=== PATIENT | female | born 1975 | race Caucasian/White ===

== ENCOUNTER 2017-05-29 12:37 | Emergency (ER) | payer BC ==
[~2017-05-29] VITALS: Ht 162.6 cm; Wt 56.7 kg
[~2017-05-29 12:37] MED LIST: ANT25HP PO; MINO50TA PO; SPIR50TA2 PO
[2017-05-29 12:57] VITALS: TEMP 36.6; Ht 162.6 cm; Wt 56.7 kg
[2017-05-29 13:02] VITALS: O2SAT 100
[2017-05-29] MEDS ORDERED: SODIUM CHLORIDE 0.9% 1000ML 1,000 ML IV STA (13:05)
[2017-05-29] MEDS ORDERED: ACETAMINOPHEN 325 MG TAB PO STA (13:05)
--- NOTE | 2017-05-29 13:09 | EMERGENCY ROOM VISIT NOTE ---
History Report prepared by Pearl: Jennie Dickerson Under the Supervision of: Dr. Stefan Ventura M.D. First contact with patient: 12:57 Chief Complaint: SYNCOPE (NEAR SYNCOPE) Stated Complaint: NEAR SYNCOPE IN OUT PATIENT XRAY History of Present Illness The patient is a 42 year old female who presents to the Emergency Room with complaints of a near syncope episode that occurred 2 hours ago. The patient notes that she felt nauseous and had some episodes of diarrhea last night. She states that she ate this morning. The patient notes her that her heart was racing during the episode today, but she denies loss of consciousness, chest pain, or shortness of breath. She notes that she currently has a headache. The patient has a history of feeling dizzy and having near syncope episodes. Source of History: patient Onset: two hours ago Quality: other (near syncope) Timing: other (episode) Associated Symptoms: + headache, + nausea, + diarrhea, No LOC, No chest pain , No SOB Review of Systems See HPI for pertinent positives & negatives. A total of 10 systems reviewed and were otherwise negative. Past Medical & Surgical Medical Problems: (1) Acne (2) Minocycline correction use Family History FH: heart disease FH: hyperlipidemia Hypertension Social History Smoking Status: Never Smoker Alcohol Use: occasionally Drug Use: none Marital Status: Occupation Status: employed Current/Historical Medications Scheduled Minocycline Hcl (Minocycline Hcl), 50 MG PO BID Spironolactone (Aldactone), 50 MG PO BID Allergies Coded Allergies: Azithromycin (Unverified Allergy, Mild, 05/29/17) Physical Exam Vital Signs Date Time Temp Pulse Resp B/P (MAP) Pulse Ox O2 Delivery O2 Flow Rate FiO2 05/29/17 16:54 67 20 112/77 99 05/29/17 15:58 68 20 106/70 97 Room Air 05/29/17 13:27 71 131/78 87 132/95 79 141/90 05/29/17 13:21 72 05/29/17 13:02 100 Room Air 05/29/17 12:57 36.6 72 18 132/87 100 Room Air Physical Exam GENERAL: Patient is in no acute distress. HEENT: No acute trauma, normocephalic atraumatic, mucous membranes moist, no nasal congestion, no scleral icterus. NECK: No stridor, no adenopathy, no meningismus, trachea is midline. LUNGS: Clear to auscultation bilaterally, no wheeze, no rhonchi, breath sounds equal. HEART: Without murmurs gallops or rubs, regular rate and rhythm. ABDOMEN: Soft, nontender, bowel sounds positive, no hernias, no peritonitis. EXTREMITIES: No cyanosis or edema, full range of motion of all the joints without pain or difficulty, no signs for acute trauma. NEUROLOGIC: Oriented x 3, no acute motor or sensory deficits, no focal weakness. SKIN: No rash, no jaundice, no diaphoresis. Medical Decision & Procedures ER Provider Diagnostic Interpretation: Radiology results as stated below per my review and radiologist interpretation: CHEST ONE VIEW PORTABLE FINDINGS: Cardiac silhouette is within normal limits. There is no pneumothorax, pleural effusion or focal airspace consolidation. Convex right curvature of the midthoracic spine is seen measuring approximate 16 degrees. Bones appear to be grossly intact. IMPRESSION: No acute cardiopulmonary process. The above report was generated using voice recognition software. It may contain grammatical, syntax or spelling errors. Electronically signed by: Marck Allen M.D. Laboratory Results 05/29/17 13:40 Red Blood Count 4.75, Mean Corpuscular Volume 94.7, Mean Corpuscular Hemoglobin 33.1, Mean Corpuscular Hemoglobin Concent 34.9, Mean Platelet Volume 12.9, Neutrophils (%) (Auto) 81.8, Lymphocytes (%) (Auto) 12.9, Monocytes (%) (Auto) 3.7, Eosinophils (%) (Auto) 1.1, Basophils (%) (Auto) 0.1, Neutrophils # (Auto) 9.30, Lymphocytes # (Auto) 1.47, Monocytes # (Auto) 0.42, Eosinophils # (Auto) 0.13, Basophils # (Auto) 0.01 05/29/17 13:40 Test 05/29/17 13:40 05/29/17 16:06 White Blood Count 11.37 K/uL (4.8-10.8) Red Blood Count 4.75 M/uL (4.2-5.4) Hemoglobin 15.7 g/dL (12.0-16.0) Hematocrit 45.0 % (37-47) Mean Corpuscular Volume 94.7 fL (80-100) Mean Corpuscular Hemoglobin 33.1 pg (25-34) Mean Corpuscular Hemoglobin Concent 34.9 g/dl (32-36) Platelet Count 166 K/uL (130-400) Mean Platelet Volume 12.9 fL (7.4-10.4) Neutrophils (%) (Auto) 81.8 % Lymphocytes (%) (Auto) 12.9 % Monocytes (%) (Auto) 3.7 % Eosinophils (%) (Auto) 1.1 % Basophils (%) (Auto) 0.1 % Neutrophils # (Auto) 9.30 K/uL (1.4-6.5) Lymphocytes # (Auto) 1.47 K/uL (1.2-3.4) Monocytes # (Auto) 0.42 K/uL (0.11-0.59) Eosinophils # (Auto) 0.13 K/uL (0-0.5) Basophils # (Auto) 0.01 K/uL (0-0.2) RDW Standard Deviation 42.2 fL (36.4-46.3) RDW Coefficient of Variation 12.3 % (11.5-14.5) Immature Granulocyte % (Auto) 0.4 % Immature Granulocyte # (Auto) 0.04 K/uL (0.00-0.02) Urine Color YELLOW Urine Appearance CLEAR (CLEAR) Urine pH 7.5 (4.5-7.5) Urine Specific [place] 1.010 (1.000-1.030) Urine Protein NEG (NEG) Urine Glucose (UA) NEG (NEG) Urine Ketones NEG (NEG) Urine Occult Blood NEG (NEG) Urine Nitrite NEG (NEG) Urine Bilirubin NEG (NEG) Urine Urobilinogen NEG (NEG) Urine Leukocyte Esterase TRACE (NEG) Urine WBC (Auto) /hpf (0-5) Urine RBC (Auto) /hpf (0-4) Urine Hyaline Casts (Auto) /lpf (0-5) Urine Epithelial Cells (Auto) /lpf (0-5) Urine Bacteria (Auto) (NEG) Urine RBC 0-4 /hpf (0-4) Urine WBC 0 /hpf (0-5) Urine Epithelial Cells 0-5 /lpf (0-5) Urine Bacteria NEG (NEG) Anion Gap 8.0 mmol/L (3-11) Est Creatinine Clear Calc Drug Dose 79.2 ml/min Estimated GFR () 105.4 Estimated GFR (Non- 90.9 BUN/Creatinine Ratio 15.9 (10-20) Calcium Level 10.0 mg/dl (8.5-10.1) Magnesium Level 2.1 mg/dl (1.8-2.4) Total Bilirubin 0.9 mg/dl (0.2-1) Aspartate Amino Transf (AST/SGOT) 18 U/L (15-37) Alanine Aminotransferase (ALT/SGPT) 19 U/L (12-78) Alkaline Phosphatase 56 U/L (45-117) Total Protein 8.2 gm/dl (6.4-8.2) Albumin 4.8 gm/dl (3.4-5.0) Globulin 3.4 gm/dl (2.5-4.0) Albumin/Globulin Ratio 1.4 (0.9-2) Thyroid Stimulating Hormone (TSH) 1.700 uIu/ml (0.300-4.500) Human Chorionic Gonadotropin, Qual NEG (NEG) Bedside Troponin I < 0.030 ng/ml (0-0.045) Laboratory results reviewed by me. Medications Administered Medications (Trade) Dose Ordered Sig/Karlos Route Start Time Stop Time Status Last Admin Dose Admin Sodium Chloride 1,000 ml @ 999 mls/hr Q1H1M STAT IV 05/29/17 13:05 05/29/17 14:05 DC 05/29/17 13:48 999 MLS/HR Acetaminophen (Tylenol Tab) 650 mg NOW STAT PO 05/29/17 13:05 05/29/17 13:09 DC 05/29/17 13:49 650 MG Sodium Chloride 500 ml @ 999 mls/hr Q31M STAT IV 05/29/17 14:54 05/29/17 15:24 DC 05/29/17 15:58 999 MLS/HR ECG Indication: syncope Rate (beats per minute): 70 Rhythm: normal sinus Findings: other (LVH, poor R-wave progression, non specific ST change ) Comparison ECG Date: 01/26/2016 Change: no significant change ED Course 1300: The patient was evaluated in room C1B. A complete history and physical exam was performed. 1305: Tylenol Tab 650 mg PO. 1402: Orthostatic vital signs negative. 1454: Sodium Chloride 500 ml @ 999 mls/hr IV. 1504: I reevaluated the patient she feels fine. 1630: Reevaluated the patient. Discussed results and discharge instructions: She verbalized understanding and agreement. The patient is ready for discharge. Medical Decision Differential diagnosis includes but is not limited to: dehydration, viral illness, electrolyte imbalance, hypotension, orthostasis, , dysrhythmia , anemia, DE. There is a mild leukocytosis, this could be consistent with infection or just the stress of her current situation. No worrisome anemia. No significant electrolyte abnormality, kidney failure or hepatitis. The patient appears to be in a euthyroid state. EKG shows a normal sinus rhythm with LVH, there are some chronic changes noted. No acute ischemia by EKG. The EKG is unchanged compared to previous EKGs. Cardiac enzyme testing 2 is not consistent with acute cardiac injury. Chest x-ray does not show pneumonia or cardiomegaly. There was no CHF. Orthostatic vital signs were negative. Urinalysis does not show infection. testing is negative. The patient received IV saline, oral Tylenol. She ate a meal here, she feels improved. The patient presents with a near syncopal event. She has had previous episodes similar to this. She has had some diarrhea and nausea over the last day and I suspect this is what is causing her to feel so unwell. She likely has an early viral illness. The patient is being discharged, a bland diet, hydration, rest were encouraged. If worsening, she can return. Medication Reconcilliation Current Medication List: was personally reviewed by me Blood Pressure Screening Patient's blood pressure: Elevated blood pressure Blood pressure disposition: Elevated BP felt to be situational Impression Primary Impression: Near syncope Additional Impression: Diarrhea Scribe Attestation The scribe's documentation has been prepared under my direction and personally reviewed by me in its entirety. I confirm that the note above accurately reflects all work, treatment, procedures, and medical decision making performed by me. Departure Information Dispostion Home / Self-Care Referrals Bro Soto M.D. (PCP) Forms HOME CARE DOCUMENTATION FORM, IMPORTANT VISIT INFORMATION Patient Instructions My [facility] Additional Instructions fluids rest bland diet off work today and tomorrow return if worsening labs, imaging and heart testing today was all ok Problem Qualifiers
--- NOTE | 2017-05-29 13:34 | DIAGNOSTIC IMAGING REPORT ---
CHEST ONE VIEW PORTABLE HISTORY: 42 years-old Female EVALUATE ALTERED MENTAL STATUS/WEAKNESS COMPARISON: Chest radiograph 01/26/2016 TECHNIQUE: Portable upright AP view of the chest FINDINGS: Cardiac silhouette is within normal limits. There is no pneumothorax, pleural effusion or focal airspace consolidation. Convex right curvature of the midthoracic spine is seen measuring approximate 16 degrees. Bones appear to be grossly intact. IMPRESSION: No acute cardiopulmonary process. The above report was generated using voice recognition software. It may contain grammatical, syntax or spelling errors. Electronically signed by: Marck Allen M.D. 05/29/2017 1:32 PM Dictated Date/Time: 05/29/2017 1:29 PM
[2017-05-29 14:03] LABS: BASO % 0.1 %; BASO ABS # 0.01 K/uL (0-0.2); COMPLETE YES; EOS % 1.1 %; IG% 0.4 %; LYMPH % 12.9 %; LYMPH ABS # 1.47 K/uL (1.2-3.4); MEAN CELL VOLUME 94.7 fL (80-100); MEAN CORPUSCULAR HEMOGLOBIN 33.1 pg (25-34); MEAN CORPUSCULAR HGB CONC 34.9 g/dl (32-36); MEAN PLATELET VOLUME 12.9 fL (7.4-10.4); MONO % 3.7 %; NEUT % 81.8 %; PLATELET COUNT 166 K/uL (130-400); RED BLOOD COUNT 4.75 M/uL (4.2-5.4); WHITE BLOOD COUNT 11.37 K/uL (4.8-10.8)
[2017-05-29 14:10] LABS: BUN/CREATININE RATIO 15.9 (10-20); CREATININE 0.8 mg/dl (0.60-1.20); MAGNESIUM 2.1 mg/dl (1.8-2.4); POTASSIUM 3.8 mmol/L (3.5-5.1)
[2017-05-29 14:19] LABS: URINE APPEARANCE CLEAR (CLEAR); URINE BILIRUBIN NEG (NEG); URINE COLOR YELLOW; URINE NITRITE NEG (NEG); URINE PH 7.5 (4.5-7.5); UROBILINOGEN NEG (NEG); ZZUR CULT IF INDIC CLEAN CATCH NO
[2017-05-29 14:20] LABS: MANUAL MICROSCOPIC REQUIRED? YES; REVIEW REQ? NO
[2017-05-29 14:21] LABS: ALB/GLOB RATIO 1.4 (0.9-2); THYROID STIMULATING HORMONE 1.7 uIu/ml (0.300-4.500)
[2017-05-29 14:33] LABS: URINE BACTERIA NEG (NEG); URINE RBC 0-4 /hpf (0-4); URINE WBC 0 /hpf (0-5)
[2017-05-29 14:42] LABS: PREG INTERNAL NEGATIVE QC NEG CLEAR BACKGROUND; PREG INTERNAL POSITIVE QC POS CONTROL LINE
[2017-05-29] MEDS ORDERED: SODIUM CHLORIDE 0.9% 500ML 500 ML IV STA (14:54)
[2017-05-29 16:54] VITALS: BP 112/77; PULSE 67; O2SAT 99
== END 2017-05-29 16:56 | disposition home or self-care (01) ==
LOC: EDBD 12:37 → C.EDC 12:38
DX: R55 Syncope and collapse (principal); R19.7 Diarrhea, unspecified; L70.9 Acne, unspecified; Z83.49 Family history of other endocrine, nutritional and metabolic diseases; Z82.49 Family history of ischemic heart disease and other diseases of the circulatory system; Z79.2 Long term (current) use of antibiotics

== ENCOUNTER → 2017-07-17 | Outpatient (CLI) | payer BC ==
[~2017-07-17] MED LIST changes: -ANT25HP PO
[2017-07-17 14:44] LABS: BASO % 0.1 %; BASO ABS # 0.01 K/uL (0-0.2); COMPLETE YES; EOS % 1.6 %; HEMATOCRIT 41.5 % (37-47); IG% 0.1 %; LYMPH % 28.2 %; LYMPH ABS # 1.98 K/uL (1.2-3.4); MEAN CELL VOLUME 93.5 fL (80-100); MEAN CORPUSCULAR HEMOGLOBIN 32.4 pg (25-34); MEAN CORPUSCULAR HGB CONC 34.7 g/dl (32-36); MEAN PLATELET VOLUME 12.7 fL (7.4-10.4); MONO % 4.7 %; NEUT % 65.3 %; PLATELET COUNT 134 K/uL (130-400); RED BLOOD COUNT 4.44 M/uL (4.2-5.4); WHITE BLOOD COUNT 7.02 K/uL (4.8-10.8)
[2017-07-17 19:25] LABS: LYME DISEASE AB IGG NEG (NEG); LYME DISEASE AB IGM NEG (NEG)
== END | disposition home or self-care (01) ==
LOC: C.LAB 13:42
PROVIDERS: ATTEND Family Medicine
DX: A69.20 Lyme disease, unspecified (principal)

== ENCOUNTER → 2017-07-25 | Outpatient (CLI) | payer BC | END | disposition home or self-care (01) | LOC: C.PAPS 11:06 | PROVIDERS: ATTEND Obstetrics & Gynecology | DX: Z01.419 Encounter for gynecological examination (general) (routine) without abnormal findings (principal) ==

== ENCOUNTER → 2017-07-30 | Outpatient (CLI) | payer BC ==
--- NOTE | 2017-07-31 07:24 | MAMMOGRAPHY REPORT ---
BILATERAL DIGITAL SCREENING MAMMOGRAM TOMOSYNTHESIS WITH CAD: 07/30/2017 CLINICAL HISTORY: Routine screening. Patient has no complaints. TECHNIQUE: Breast tomosynthesis in addition to standard 2D mammography was performed. Current study was also evaluated with a Computer Aided Detection (CAD) system. COMPARISON: Comparison is made to exams dated: 07/27/2016 mammogram and 07/26/2015 mammogram - [facility]. BREAST COMPOSITION: The tissue of both breasts is heterogeneously dense, which may obscure small mas ses. FINDINGS: No suspicious mass, architectural distortion or cluster of new, suspicious microcalcificat ions is seen. IMPRESSION: ACR BI-RADS CATEGORY 1: NEGATIVE There is no mammographic evidence of malignancy. A 1 year screening mammogram is recommended. The pa tient will receive written notification of the results. Approximately 10% of breast cancers are not detected with mammography. A negative mammographic report should not delay biopsy if a clinically suggestive mass is present. Tracey Nobles M.D. ay/:07/30/2017 16:10:22 Section Leader: Kailey TORRES(Vasquez)(M), [facility] letter sent: Normal 1/2 BI-RADS Code: ACR BI-RADS Category 1: Negative
== END | disposition home or self-care (01) ==
LOC: C.MAMM 15:16
PROVIDERS: ATTEND Obstetrics & Gynecology
DX: Z12.31 Encounter for screening mammogram for malignant neoplasm of breast (principal)

== ENCOUNTER → 2017-12-17 | Outpatient (CLI) | payer OTHER ==
--- NOTE | 2017-12-19 20:37 | Holter Monitor ---
Holter Monitor Report Holter Monitor Report Date of Service: 12/17/2017 to 12/19/2017 Holter Monitor Report Procedure: 48 hour Holter monitor Indications: Syncope Ordering physician: Dr. Soto Procedural details: Study was adequate for interpretation. The average heart rate was 69 beats per minute with a minimum of 49 and a maximum of 153 bpm. The rhythm was normal sinus rhythm with sinus bradycardia and sinus tachycardia. There were very rare isolated supraventricular ectopic complexes without supraventricular arrhythmia. There were very rare isolated premature ventricular complexes, without ventricular arrhythmia. There were no significant pauses or high-grade block. Symptoms reported as dizzy, heart racing, anxiety did not correlate with ectopy. Symptoms occurred during normal sinus rhythm. Impression: 1. Sinus rhythm with average heart rate 69 bpm. 2. Very rare isolated PACs and PVCs. 3. No arrhythmia. 4. Symptoms occurred during normal sinus rhythm.
== END | disposition home or self-care (01) ==
LOC: C.CPL 11:05
PROVIDERS: ATTEND Family Medicine
DX: R55 Syncope and collapse (principal)